=== PATIENT | male | born 1945 | race Caucasian/White ===

== ENCOUNTER 2022-02-11 10:48 | Outpatient (CLI) | payer MEDICARE, OTHER ==
[~2022-02-11 10:48] MED LIST: barium sulfate 450ml oral suspension ONE
== END 2022-02-11 23:59 | disposition home or self-care (01) ==
LOC: RAD 10:48
PROVIDERS: ATTEND Surgery
DX: K44.9 Diaphragmatic hernia without obstruction or gangrene (principal); K22.4 Dyskinesia of esophagus
CPT/HCPCS: 74220

== ENCOUNTER 2022-04-11 00:45 | Emergency (ER) | payer OTHER, MEDICARE ==
[~2022-04-11] VITALS: Ht 172.7 cm; Wt 65.9 kg
[~2022-04-11 00:45] MED LIST changes: +ALBU90AE2 PO; +ALEN70TA60 PO; +AMLO2.5T2 PO; +ASPI-1071 PO; +ATOR20TA66 PO; +CHOL100025 PO; +CLOP75TA34 PO; +COLL1POW3; +FAMO20TA8 PO; +FLUT1BLS10; +FOLI0.4T6 PO; +GUAI100L97 PO; +LEVO-65 PO; +MEPO100S IJ; +MONT-40 PO; +MULT-25 PO; +OMEP40CA21 PO; +OSC500T PO; +PER5325T PO; +PRED10TA23 PO; +PRED5TAB PO; +THIA50TA10 PO; -barium sulfate 450ml oral suspension ONE
[2022-04-11 01:22] LABS: BASOPHILS % (AUTO) 0.3 % (0-1); EOSINOPHILS # (AUTO) 0.1 X10'3 (0-0.9); EOSINOPHILS % (AUTO) 0.9 % (0-6); HEMATOCRIT 41.5 % (42.0-52.0); HEMOGLOBIN 14.2 g/dl (14.0-17.9); LYMPHOCYTES % (AUTO) 12.4 % (21-51); MEAN CORPUSCULAR HEMOGLOBIN 31.5 PG (27.0-31.0); MEAN CORPUSCULAR HGB CONC 34.2 g/dL (33.0-36.5); MEAN PLATELET VOLUME 8.1 FL (7.4-10.4); MONOCYTES # (AUTO) 0.7 X10'3 (0-0.9); MONOCYTES % (AUTO) 9.5 % (2-12); NEUTROPHILS % (AUTO) 76.9 % (42-75); PLATELET COUNT 197 X10'3 (140-440); RED BLOOD COUNT 4.51 X10'6 (4.70-6.10); WHITE BLOOD COUNT 7.9 X10'3 (4.5-11.0)
[2022-04-11 01:35] LABS: ALANINE AMINOTRANSFERASE 19 U/L (12-78); ALBUMIN 3.4 G/DL (3.4-5.0); ALBUMIN/GLOBULIN RATIO 1.1 (1.1-1.5); ALKALINE PHOSPHATASE 59 IU/L (46-116); ANION GAP 6 (8-16); ASPARTATE AMINO TRANSFERASE 18 U/L (10-37); BILIRUBIN,TOTAL 0.7 MG/DL (0.1-1.0); BLOOD UREA NITROGEN 15 MG/DL (7-18); CALCIUM 9.4 MG/DL (8.5-10.1); CHLORIDE 108 MMOL/L (99-107); GLUCOSE 120 MG/DL (70-104); MAGNESIUM 2.2 MG/DL (1.5-2.4); POTASSIUM 3.9 MMOL/L (3.5-5.1); SODIUM 139 MMOL/L (135-145); TOTAL CARBON DIOXIDE 25.3 MMOL/L (24-32); TOTAL PROTEIN 6.5 G/DL (6.4-8.2); eGFR 72 ML/MIN
[2022-04-11] MEDS ORDERED: dexamethasone sod phosphate 10mg/ml inj PO STA (01:56)
[2022-04-11 02:11] LABS: D-DIMER 1.49 MG/L FEU (0-0.50)
[2022-04-11] MEDS ORDERED: iohexol 350MG/ML 100ml bottle IV ONE (02:52)
[2022-04-11] MEDS ORDERED: enoxaparin 100mg/ml syringe SUBCUT ONE (03:50)
[2022-04-11] MEDS ORDERED: apixaban 5mg tablet PO ONE ×2 (04:30→08:00)
[2022-04-11 05:00] VITALS: BP 125/74
[2022-04-11] MEDS ORDERED: APIX5TAB3 PO ×2 (05:10→05:11)
== END 2022-04-11 06:20 | disposition home or self-care (01) ==
LOC: ER 00:45
DX: I26.99 Other pulmonary embolism without acute cor pulmonale (principal); J44.9 Chronic obstructive pulmonary disease, unspecified; I51.9 Heart disease, unspecified; Z88.2 Allergy status to sulfonamides; Z88.8 Allergy status to other drugs, medicaments and biological substances; Z79.899 Other long term (current) drug therapy; Z79.82 Long term (current) use of aspirin
CPT/HCPCS: 36415; 71045; 71275; 80053; 83735; 83880; 84145; 84484; 85025; 85379; 93970; 96372; 99285; J1100; J1650; J3490; Q9967

== ENCOUNTER 2022-04-18 16:16 | Emergency (ER) | payer OTHER, MEDICARE ==
[~2022-04-18] VITALS: Ht 172.7 cm; Wt 65.9 kg
[~2022-04-18 16:16] MED LIST changes: +APIX5TAB3 PO
[2022-04-18 16:56] LABS: ALANINE AMINOTRANSFERASE 17 U/L (12-78); ALBUMIN 3.6 G/DL (3.4-5.0); ALBUMIN/GLOBULIN RATIO 1.1 (1.1-1.5); ALKALINE PHOSPHATASE 56 IU/L (46-116); ANION GAP 8 (8-16); ASPARTATE AMINO TRANSFERASE 18 U/L (10-37); BILIRUBIN,TOTAL 0.8 MG/DL (0.1-1.0); BLOOD UREA NITROGEN 9 MG/DL (7-18); BUN/CREATININE RATIO 12.3 (5.4-32.0); CALCIUM 9.2 MG/DL (8.5-10.1); CHLORIDE 108 MMOL/L (99-107); CREATININE 0.73 MG/DL (0.60-1.10); GLUCOSE 72 MG/DL (70-104); POTASSIUM 3.4 MMOL/L (3.5-5.1); SODIUM 142 MMOL/L (135-145); TOTAL CARBON DIOXIDE 26.5 MMOL/L (24-32); TOTAL PROTEIN 6.8 G/DL (6.4-8.2); eGFR > 90 ML/MIN
[2022-04-18 16:57] LABS: BASOPHILS % (AUTO) 0.3 % (0-1); EOSINOPHILS % (AUTO) 0.6 % (0-6); HEMATOCRIT 44.2 % (42.0-52.0); HEMOGLOBIN 14.5 g/dl (14.0-17.9); LYMPHOCYTES % (AUTO) 15.8 % (21-51); MEAN CORPUSCULAR HEMOGLOBIN 30.3 PG (27.0-31.0); MEAN CORPUSCULAR HGB CONC 32.8 g/dL (33.0-36.5); MEAN CORPUSCULAR VOLUME 92.4 FL (78-98); MONOCYTES # (AUTO) 0.6 X10'3 (0-0.9); MONOCYTES % (AUTO) 10.2 % (2-12); NEUTROPHILS # (AUTO) 4.5 X10'3 (1.8-7.7); NEUTROPHILS % (AUTO) 73.1 % (42-75); PLATELET COUNT 254 X10'3 (140-440); RED BLOOD COUNT 4.79 X10'6 (4.70-6.10); RED CELL DISTRIBUTION WIDTH 13.7 % (11.5-14.5); WHITE BLOOD COUNT 6.2 X10'3 (4.5-11.0)
[2022-04-18 18:07] VITALS: BP 130/83
== END 2022-04-18 18:25 | disposition left against medical advice (07) ==
LOC: ER 16:16
DX: R07.9 Chest pain, unspecified (principal); Z53.21 Procedure and treatment not carried out due to patient leaving prior to being seen by health care provider
CPT/HCPCS: 36415; 80053; 83735; 83880; 84484; 85025; 93005; 99281

== ENCOUNTER 2023-04-09 18:42 | Emergency (ER) | payer OTHER, MEDICARE ==
[~2023-04-09] VITALS: Ht 167.6 cm; Wt 72.7 kg
[~2023-04-09 18:42] MED LIST changes: -FOLI0.4T6 PO; -PRED10TA23 PO
[2023-04-09 18:55] VITALS: BP 144/89; PULSE 84; RESP 18; TEMP 97.8; O2SAT 96
[2023-04-09 19:28] LABS: ALANINE AMINOTRANSFERASE 38 U/L (12-78); ALBUMIN 3.8 G/DL (3.4-5.0); ALBUMIN/GLOBULIN RATIO 1.1 (1.1-1.5); ALKALINE PHOSPHATASE 72 IU/L (46-116); ANION GAP 12 (8-16); ASPARTATE AMINO TRANSFERASE 29 U/L (10-37); BILIRUBIN,TOTAL 1.1 MG/DL (0.1-1.0); BLOOD UREA NITROGEN 12 MG/DL (7-18); BUN/CREATININE RATIO 12.6 (10.0-20.0); CALCIUM 9.2 MG/DL (8.5-10.1); CHLORIDE 104 MMOL/L (99-107); CREATININE 0.95 MG/DL (0.60-1.10); GLUCOSE 103 MG/DL (70-104); POTASSIUM 3.8 MMOL/L (3.5-5.1); SODIUM 140 MMOL/L (135-145); TOTAL CARBON DIOXIDE 23.6 MMOL/L (24-32); TOTAL PROTEIN 7.3 G/DL (6.4-8.2); eCRCL 57 ML/MIN; eGFR 76 ML/MIN
[2023-04-09 19:31] LABS: BASOPHILS % (AUTO) 0.6 % (0-1); EOSINOPHILS % (AUTO) 0.5 % (0-6); HEMATOCRIT 43.9 % (42.0-52.0); HEMOGLOBIN 14.9 g/dl (14.0-17.9); LYMPHOCYTES # (AUTO) 1.3 X10'3 (1.1-4.8); LYMPHOCYTES % (AUTO) 17.6 % (21-51); MEAN CORPUSCULAR HEMOGLOBIN 31.7 PG (27.0-31.0); MEAN CORPUSCULAR HGB CONC 33.9 g/dL (33.0-36.5); MEAN CORPUSCULAR VOLUME 93.5 FL (78-98); MEAN PLATELET VOLUME 8.5 FL (7.4-10.4); MONOCYTES % (AUTO) 12.6 % (2-12); NEUTROPHILS # (AUTO) 5.2 X10'3 (1.8-7.7); NEUTROPHILS % (AUTO) 68.7 % (42-75); PLATELET COUNT 280 X10'3 (140-440); RED BLOOD COUNT 4.69 X10'6 (4.70-6.10); RED CELL DISTRIBUTION WIDTH 14.4 % (11.5-14.5); WHITE BLOOD COUNT 7.6 X10'3 (4.5-11.0)
[2023-04-09 19:37] LABS: PRO BRAIN NATRIURETIC PEPTIDE 65 PG/ML (0-450)
== END 2023-04-09 20:01 | disposition left against medical advice (07) ==
LOC: ER 18:43
DX: R06.02 Shortness of breath (principal); R07.9 Chest pain, unspecified; Z53.21 Procedure and treatment not carried out due to patient leaving prior to being seen by health care provider
CPT/HCPCS: 36415; 71045; 80053; 83880; 84484; 85025; 93005; 99281